=== PATIENT | male | born 1945 | race American Indian/Alaskan Native ===

== ENCOUNTER 2021-11-22 08:05 | Outpatient (CLI) | payer MEDICARE ==
--- NOTE | 2021-11-22 09:45 | Cat Scan Report ---
CT ABDOMEN AND PELVIS WITHOUT CONTRAST HISTORY: C61 malignant neoplasm of prostate COMPARISON: None. TECHNIQUE: Axial CT images were obtained through the abdomen and pelvis without IV contrast. Sagittal and coronal reformatted images. All CT scans at this location are performed using CT dose reduction for ALARA by means of automated exposure control. FINDINGS: CT ABDOMEN: Lung Bases: Clear. Liver: No significant abnormality. Biliary: No significant abnormality. Spleen: No significant abnormality. Unenlarged. Pancreas: No significant abnormality. Adrenals: No significant abnormality. Kidneys: A 3.7 cm simple appearing cyst is identified in the posterior right kidney near mid pole. A 1.7 cm hypodensity with thin internal calcified septation is identified near the superior pole of the left kidney. The kidneys and collecting systems are otherwise unremarkable. Lymphatics: No lymphadenopathy. Vasculature: Moderate atherosclerotic disease in the aorta and iliac arteries without acute abnormali ty. Bowel/Peritoneum: No significant abnormality. No free air. No free fluid. Mild diverticulosis of the distal colon is noted. Normal appendix. CT PELVIS: : The bladder and distal ureters are unremarkable. The prostate gland is normal size measuring 4.4 cm in diameter. Osseous Structures: No suspicious bony lesion is detected. Additional Findings: None IMPRESSION: No evidence for metastatic disease in the abdomen or pelvis. Bilateral renal cysts as described. The left renal cyst appears slightly complex. Consider correlatio n with ultrasound. Signer Name: Corby Kelly Jr, MD Signed: 11/22/2021 9:41 AM Workstation Name: [id number]
--- NOTE | 2021-11-22 12:45 | Nuclear Medicine Report ---
NUCLEAR MEDICINE BONE SCAN, WHOLE BODY INDICATION: C61. Initial staging of prostate cancer. TECHNIQUE: 26.7 mCi of Tc-99m MDP were injected IV. Whole body images were obtained. COMPARISON: Correlation is made with CT abdomen pelvis without contrast performed the same day.. FINDINGS: Skeletal Structures: Fairly symmetric, likely degenerative uptake is present involving the sternocla vicular joints, shoulders, knees and feet. Skeletal Lesions: None. Soft Tissues: Normal. Kidneys: Normal, symmetric activity. Additional Findings: None. IMPRESSION: No evidence for osseous metastasis. Signer Name: Corby Kelly Jr, MD Signed: 11/22/2021 12:41 PM Workstation Name: [id number]
== END 2021-11-22 08:06 | disposition home or self-care (01) ==
LOC: NM 08:05
PROVIDERS: ATTEND Urology
DX: C61 Malignant neoplasm of prostate (principal); N28.1 Cyst of kidney, acquired; I70.0 Atherosclerosis of aorta
CPT/HCPCS: 74176; 78306; A9503